=== PATIENT | female | born 1955 | race Caucasian/White ===

== ENCOUNTER 2017-09-02 17:59 | Inpatient (IN) | payer OTHER ==
[2017-09-02] MEDS: ONDANSETRON 4 MG INJ IV (23:51)
[2017-09-02 23:52] LABS: ADD MAN DIFF? NO
[2017-09-02] MEDS: morphine 4 MG/ML VIAL IV (23:52)
[2017-09-02 23:54] LABS: WHITE BLOOD COUNT 7.6 10^3/ul (4.8-10.8)
[2017-09-02 23:54] LABS: BASOPHILS % 0.3 % (0.0-2.0); EOSINOPHILS # 0.1 10^3/ul (0.0-0.5); EOSINOPHILS % 0.7 % (0.0-7.0); HEMATOCRIT 43.4 % (37.0-47.0); HEMOGLOBIN 14.8 g/dl (12.0-16.0); LYMPHOCYTES # 2.1 10^3/ul (0.8-2.9); LYMPHOCYTES % 26.8 % (15.0-51.0); MEAN CORPUSCULAR HEMOGLOBIN 29.5 pg (29.0-33.0); MEAN CORPUSCULAR HGB CONC 34.1 g/dl (32.0-37.0); MEAN CORPUSCULAR VOLUME 86.5 fl (82.0-101.0); MEAN PLATELET VOLUME 8.9 fl (7.4-10.4); MONOCYTE # 0.6 10^3/ul (0.3-0.9); MONOCYTES % 7.5 % (0.0-11.0); NEUTROPHIL # 4.9 10^3/ul (1.6-7.5); NEUTROPHILS % 64.2 % (39.0-77.0); PLATELET COUNT 367 10^3/UL (140-415); RED BLOOD COUNT 5.02 10^6/ul (4.20-5.40); RED CELL DISTRIBUTION WIDTH 12.3 % (11.5-14.5)
[2017-09-03 00:30] LABS: ALANINE AMINOTRANSFERASE 174 IU/L (13-69); ALBUMIN 4.3 g/dl (3.3-4.9); ALBUMIN/GLOBULIN RATIO 1.22; ALKALINE PHOSPHATASE 182 IU/L (42-121); ANION GAP 13 (8-16); ASPARTATE AMINO TRANSFERASE 340 IU/L (15-46); BILIRUBIN,INDIRECT 0.3 mg/dl (0-1.1); BILIRUBIN,TOTAL 0.3 mg/dl (0.2-1.3); BLOOD UREA NITROGEN 11 mg/dl (7-20); CALCIUM 9.2 mg/dl (8.4-10.2); CARBON DIOXIDE 28 mmol/L (21-31); CHLORIDE 104 mmol/L (97-110); CREATININE 0.66 mg/dl (0.44-1.00); GLUCOSE 89 mg/dl (70-220); LIPASE 859 U/L (23-300); POTASSIUM 3.3 mmol/L (3.5-5.1); SODIUM 142 mmol/L (135-144); TOTAL PROTEIN 7.8 g/dl (6.1-8.1)
[2017-09-03] MEDS: KETOROLAC 30 MG INJ IV (01:00)
[2017-09-03] MEDS ORDERED: POTASSIUM CHLORIDE 20 MEQ in DEXTROSE 5% 100 ML IVPB (01:30)
[2017-09-03] MEDS: POTASSIUM CHLORIDE 50 ML IVPB ×2 (01:33→02:43)
[2017-09-03] MEDS: SOD CHLORIDE 0.9% 1,000 ML IV ×3 (01:52→18:30)
[2017-09-03] MEDS ORDERED: BISACODYL (EC) 5 MG TAB PO (02:00)
[2017-09-03] MEDS: HYDROmorphONE 0.5 MG/0.5 ML SYG IV (05:32)
[2017-09-03 06:08] LABS: ADD MAN DIFF? NO
[2017-09-03 06:14] LABS: WHITE BLOOD COUNT 6.7 10^3/ul (4.8-10.8)
[2017-09-03 06:14] LABS: BASOPHILS % 0.3 % (0.0-2.0); EOSINOPHILS # 0.1 10^3/ul (0.0-0.5); EOSINOPHILS % 1.3 % (0.0-7.0); HEMATOCRIT 38.5 % (37.0-47.0); HEMOGLOBIN 12.8 g/dl (12.0-16.0); LYMPHOCYTES # 1.8 10^3/ul (0.8-2.9); LYMPHOCYTES % 27.5 % (15.0-51.0); MEAN CORPUSCULAR HEMOGLOBIN 29.2 pg (29.0-33.0); MEAN CORPUSCULAR HGB CONC 33.2 g/dl (32.0-37.0); MEAN CORPUSCULAR VOLUME 87.9 fl (82.0-101.0); MONOCYTE # 0.7 10^3/ul (0.3-0.9); MONOCYTES % 10.5 % (0.0-11.0); PLATELET COUNT 311 10^3/UL (140-415); RED BLOOD COUNT 4.38 10^6/ul (4.20-5.40); RED CELL DISTRIBUTION WIDTH 12.3 % (11.5-14.5)
[2017-09-03] MEDS: NACL 0.9% 3 ML SYG IV (06:31)
[2017-09-03 07:02] LABS: ALANINE AMINOTRANSFERASE 177 IU/L (13-69); ALBUMIN 3.3 g/dl (3.3-4.9); ALBUMIN/GLOBULIN RATIO 1.32; ALKALINE PHOSPHATASE 138 IU/L (42-121); ANION GAP 13 (8-16); ASPARTATE AMINO TRANSFERASE 241 IU/L (15-46); BILIRUBIN,INDIRECT 0.3 mg/dl (0-1.1); BILIRUBIN,TOTAL 0.3 mg/dl (0.2-1.3); BLOOD UREA NITROGEN 6 mg/dl (7-20); CALCIUM 7.8 mg/dl (8.4-10.2); CARBON DIOXIDE 25 mmol/L (21-31); CHLORIDE 112 mmol/L (97-110); CHOL/HDL RATIO 3.2 RATIO; CHOLESTEROL 161 mg/dl (100-200); CREATININE 0.62 mg/dl (0.44-1.00); GLUCOSE 87 mg/dl (70-220); HDL CHOLESTEROL 49 mg/dl (35-98); LDL CHOLESTEROL,CALCULATED 92 mg/dl; MAGNESIUM 1.8 mg/dl (1.7-2.5); POTASSIUM 4.6 mmol/L (3.5-5.1); SODIUM 145 mmol/L (135-144); TOTAL PROTEIN 5.8 g/dl (6.1-8.1); TRIGLYCERIDES 102 mg/dl (0-149)
[2017-09-03 07:56] LABS: HEMOGLOBIN A1C 5.5 % (0-5.9)
[2017-09-03 09:47] LABS: LIPASE 1757 U/L (23-300)
[2017-09-03 10:03] LABS: HAAIG REFLEX REFLEX FILED
[2017-09-03 10:54] LABS: FREE T3 4.92 pg/ml (2.77-5.27); FREE T4 (FREE THYROXINE) 1.39 ng/dl (0.78-2.44)
[2017-09-03 11:11] LABS: HEPATITIS B SURFACE ANTIGEN NEGATIVE (NEGATIVE)
[2017-09-03 11:27] LABS: HEPATITIS B SURFACE ANTIBODY NEGATIVE (NEGATIVE)
[2017-09-03 11:28] LABS: HEPATITIS B CORE ANTIBODY NEGATIVE (NEGATIVE); HEPATITIS C VIRAL ANTIBODY NEGATIVE (NEGATIVE)
[2017-09-03] MEDS: ONDANSETRON 4 MG INJ IV (11:56)
[2017-09-03] MEDS: ACETAMINOPHEN 325 MG TAB PO (23:41)
[2017-09-04] MEDS: SOD CHLORIDE 0.9% 1,000 ML IV ×4 (01:22→15:45)
[2017-09-04 05:51] LABS: ADD MAN DIFF? NO
[2017-09-04 06:00] LABS: WHITE BLOOD COUNT 7.2 10^3/ul (4.8-10.8)
[2017-09-04 06:00] LABS: BASOPHILS % 0.4 % (0.0-2.0); EOSINOPHILS # 0.2 10^3/ul (0.0-0.5); EOSINOPHILS % 2.1 % (0.0-7.0); HEMATOCRIT 36.7 % (37.0-47.0); HEMOGLOBIN 12.2 g/dl (12.0-16.0); LYMPHOCYTES % 28.2 % (15.0-51.0); MEAN CORPUSCULAR HEMOGLOBIN 29.2 pg (29.0-33.0); MEAN CORPUSCULAR HGB CONC 33.2 g/dl (32.0-37.0); MEAN CORPUSCULAR VOLUME 87.8 fl (82.0-101.0); MONOCYTE # 0.5 10^3/ul (0.3-0.9); MONOCYTES % 7.1 % (0.0-11.0); NEUTROPHIL # 4.5 10^3/ul (1.6-7.5); NEUTROPHILS % 61.6 % (39.0-77.0); PLATELET COUNT 301 10^3/UL (140-415); RED BLOOD COUNT 4.18 10^6/ul (4.20-5.40); RED CELL DISTRIBUTION WIDTH 12.5 % (11.5-14.5)
[2017-09-04 06:11] LABS: ALANINE AMINOTRANSFERASE 127 IU/L (13-69); ALKALINE PHOSPHATASE 134 IU/L (42-121); ANION GAP 13 (8-16); ASPARTATE AMINO TRANSFERASE 79 IU/L (15-46); BILIRUBIN,INDIRECT 0.4 mg/dl (0-1.1); BILIRUBIN,TOTAL 0.4 mg/dl (0.2-1.3); BLOOD UREA NITROGEN 4 mg/dl (7-20); CALCIUM 7.7 mg/dl (8.4-10.2); CARBON DIOXIDE 24 mmol/L (21-31); CHLORIDE 108 mmol/L (97-110); GLUCOSE 70 mg/dl (70-220); LIPASE 70 U/L (23-300); MAGNESIUM 1.8 mg/dl (1.7-2.5); POTASSIUM 3.1 mmol/L (3.5-5.1); SODIUM 142 mmol/L (135-144); TOTAL PROTEIN 5.5 g/dl (6.1-8.1)
[2017-09-04] MEDS: DOCUSATE SODIUM 100 MG CAP PO (08:34)
[2017-09-04] MEDS: ACETAMINOPHEN 325 MG TAB PO ×2 (09:42→16:51)
[2017-09-04] MEDS: VERAPAMIL (SR) 120 MG TAB PO (14:00)
[2017-09-04] MEDS: POTASSIUM CHLORIDE (SR) 20 MEQ TAB PO ×3 (14:56→20:32)
[2017-09-04 15:06] LABS: OCCULT BLOOD STOOL NEGATIVE (NEGATIVE)
[2017-09-04] MEDS ORDERED: NA PHOSPHATE/BIPHOS 133 ML ENEMA PR (20:00)
[2017-09-04] MEDS ORDERED: DOCUSATE SODIUM 100 MG CAP PO (20:00)
[2017-09-04] MEDS ORDERED: HYDROmorphONE 1 MG/ML SYG IV (20:00)
[2017-09-04] MEDS ORDERED: HYDROCODONE/APAP (5/325) TAB PO ×2 (20:00)
[2017-09-04] MEDS ORDERED: BISACODYL 10 MG SUPP PR (20:00)
[2017-09-04] MEDS ORDERED: HYDROmorphONE 0.5 MG/0.5 ML SYG IV (20:00)
[2017-09-04] MEDS: VALPROIC ACID 250 MG CAP PO (21:00)
[2017-09-05] MEDS: POTASSIUM CHLORIDE (SR) 20 MEQ TAB PO ×3 (01:00→09:28)
[2017-09-05 05:22] LABS: ADD MAN DIFF? NO
[2017-09-05 05:30] LABS: BASOPHILS % 0.6 % (0.0-2.0); EOSINOPHILS # 0.2 10^3/ul (0.0-0.5); EOSINOPHILS % 2.6 % (0.0-7.0); HEMATOCRIT 35.3 % (37.0-47.0); HEMOGLOBIN 12.1 g/dl (12.0-16.0); LYMPHOCYTES # 2.6 10^3/ul (0.8-2.9); LYMPHOCYTES % 39.9 % (15.0-51.0); MEAN CORPUSCULAR HEMOGLOBIN 29.9 pg (29.0-33.0); MEAN CORPUSCULAR HGB CONC 34.3 g/dl (32.0-37.0); MEAN CORPUSCULAR VOLUME 87.2 fl (82.0-101.0); MONOCYTE # 0.5 10^3/ul (0.3-0.9); MONOCYTES % 7.8 % (0.0-11.0); NEUTROPHIL # 3.2 10^3/ul (1.6-7.5); NEUTROPHILS % 48.8 % (39.0-77.0); PLATELET COUNT 315 10^3/UL (140-415); RED BLOOD COUNT 4.05 10^6/ul (4.20-5.40); RED CELL DISTRIBUTION WIDTH 12.7 % (11.5-14.5)
[2017-09-05 05:30] LABS: WHITE BLOOD COUNT 6.5 10^3/ul (4.8-10.8)
[2017-09-05 05:53] LABS: INR 0.95; PROTIME 12.8 Sec (11.9-14.9)
[2017-09-05 05:54] LABS: PARTIAL THROMBOPLASTIN TIME 30.4 Sec (25.0-35.0)
[2017-09-05 06:16] LABS: ALANINE AMINOTRANSFERASE 93 IU/L (13-69); ALBUMIN 3.1 g/dl (3.3-4.9); ALBUMIN/GLOBULIN RATIO 1.29; ALKALINE PHOSPHATASE 120 IU/L (42-121); ANION GAP 10 (8-16); ASPARTATE AMINO TRANSFERASE 36 IU/L (15-46); BILIRUBIN,INDIRECT 0.2 mg/dl (0-1.1); BILIRUBIN,TOTAL 0.2 mg/dl (0.2-1.3); BLOOD UREA NITROGEN 5 mg/dl (7-20); CALCIUM 8.5 mg/dl (8.4-10.2); CARBON DIOXIDE 26 mmol/L (21-31); CHLORIDE 110 mmol/L (97-110); CREATININE 0.59 mg/dl (0.44-1.00); GLUCOSE 83 mg/dl (70-220); SODIUM 141 mmol/L (135-144); TOTAL PROTEIN 5.5 g/dl (6.1-8.1)
[2017-09-05 06:38] LABS: AMYLASE 53 U/L (11-123)
[2017-09-05 07:04] LABS: PHOSPHORUS 3.2 mg/dl (2.5-4.9)
[2017-09-05 07:04] LABS: MAGNESIUM 1.8 mg/dl (1.7-2.5)
[2017-09-05 07:11] LABS: LIPASE 83 U/L (23-300)
[2017-09-05 07:13] LABS: B-TYPE NATRIURETIC PEPTIDE 317 PG/ML (0-125)
[2017-09-05] MEDS ORDERED: ENOXAPARIN 40 MG/0.4 ML SYG SC (09:00)
[2017-09-05] MEDS: VERAPAMIL (SR) 120 MG TAB PO (09:00)
[2017-09-05] MEDS ORDERED: FAMOTIDINE 20 MG INJ IV (09:00)
== END 2017-09-05 12:10 | disposition home or self-care (01) | DRG 444 ==
LOC: E/R 17:59 → MS1 09-03 01:51
DX: K81.0 Acute cholecystitis (principal); K85.10 Biliary acute pancreatitis without necrosis or infection; E87.6 Hypokalemia; K52.9 Noninfective gastroenteritis and colitis, unspecified; G43.909 Migraine, unspecified, not intractable, without status migrainosus; Z87.442 Personal history of urinary calculi
CPT/HCPCS: 36415; 74176; 74181; 76705; 80053; 80061; 82150; 82270; 83036; 83690; 83735; 83880; 84100; 84439; 84443; 84481; 85025; 85610; 85730; 86674; 86704; 86706; 86708; 86709; 86803; 87045; 87177; 87205; 87338; 87340; 96374; 96375; 96376; 99285-25

== ENCOUNTER 2017-09-27 07:10 | Inpatient (IN) | payer OTHER ==
[2017-09-27 08:59] LABS: ADD MAN DIFF? NO
[2017-09-27 09:01] LABS: WHITE BLOOD COUNT 11.3 10^3/ul (4.8-10.8)
[2017-09-27 09:01] LABS: BASOPHILS % 0.4 % (0.0-2.0); EOSINOPHILS % 0.4 % (0.0-7.0); HEMATOCRIT 41.8 % (37.0-47.0); HEMOGLOBIN 13.9 g/dl (12.0-16.0); LYMPHOCYTES # 1.5 10^3/ul (0.8-2.9); LYMPHOCYTES % 13.5 % (15.0-51.0); MEAN CORPUSCULAR HGB CONC 33.3 g/dl (32.0-37.0); MEAN CORPUSCULAR VOLUME 90.3 fl (82.0-101.0); MEAN PLATELET VOLUME 9.2 fl (7.4-10.4); MONOCYTE # 0.6 10^3/ul (0.3-0.9); MONOCYTES % 5.5 % (0.0-11.0); NEUTROPHIL # 9.1 10^3/ul (1.6-7.5); NEUTROPHILS % 79.8 % (39.0-77.0); PLATELET COUNT 247 10^3/UL (140-415); RED BLOOD COUNT 4.63 10^6/ul (4.20-5.40); RED CELL DISTRIBUTION WIDTH 13.1 % (11.5-14.5)
[2017-09-27 09:06] LABS: ADD UMIC NO; UR ASCORBIC ACID NEGATIVE (NEGATIVE); UR BILIRUBIN (Dip) NEGATIVE (NEGATIVE); UR BLOOD (Dip) NEGATIVE (NEGATIVE); UR CLARITY CLEAR (CLEAR); UR COLOR COLORLESS (YELLOW); UR GLUCOSE (Dip) NEGATIVE (NEGATIVE); UR KETONES (Dip) NEGATIVE (NEGATIVE); UR LEUKOCYTE ESTERASE (Dip) NEGATIVE Leu/ul (NEGATIVE); UR NITRITE (Dip) NEGATIVE (NEGATIVE); UR TOTAL PROTEIN (Dip) NEGATIVE (NEGATIVE); UR UROBILINOGEN (Dip) NEGATIVE (NEGATIVE)
[2017-09-27] MEDS: morphine 4 MG/ML VIAL IV (09:07)
[2017-09-27] MEDS: ONDANSETRON 4 MG INJ IV ×3 (09:07→17:38)
[2017-09-27] MEDS: SOD CHLORIDE 0.9% 1,000 ML IV (09:07)
[2017-09-27 09:23] LABS: INR 0.88; PT RATIO 0.9
[2017-09-27 09:24] LABS: PARTIAL THROMBOPLASTIN TIME 32.8 Sec (25.0-35.0)
[2017-09-27 09:30] LABS: ALANINE AMINOTRANSFERASE 73 IU/L (13-69); ALBUMIN 3.9 g/dl (3.3-4.9); ALKALINE PHOSPHATASE 116 IU/L (42-121); ANION GAP 15 (8-16); ASPARTATE AMINO TRANSFERASE 150 IU/L (15-46); BILIRUBIN,INDIRECT 0.2 mg/dl (0-1.1); BILIRUBIN,TOTAL 0.2 mg/dl (0.2-1.3); BLOOD UREA NITROGEN 7 mg/dl (7-20); CALCIUM 8.9 mg/dl (8.4-10.2); CARBON DIOXIDE 26 mmol/L (21-31); CHLORIDE 103 mmol/L (97-110); CREATININE 0.65 mg/dl (0.44-1.00); GLUCOSE 118 mg/dl (70-220); LIPASE 285 U/L (23-300); SODIUM 140 mmol/L (135-144); TOTAL PROTEIN 6.9 g/dl (6.1-8.1)
[2017-09-27 09:45] LABS: TROPONIN-I < 0.012 ng/ml (0.00-0.12)
[2017-09-27] MEDS ORDERED: ACETAMINOPHEN 325 MG TAB PO (10:00)
[2017-09-27] MEDS: HYDROmorphONE 1 MG/ML SYG IV (10:03)
[2017-09-27] MEDS ORDERED: ONDANSETRON 4 MG INJ IV (11:30)
[2017-09-27] MEDS ORDERED: morphine 2 MG INJ IV (11:30)
[2017-09-27] MEDS: DEXTROSE 5%-0.45% NACL 1,000 ML IV ×2 (13:15→21:30)
[2017-09-27] MEDS ORDERED: FAMOTIDINE 20 MG TAB (19:56)
[2017-09-27] MEDS: FAMOTIDINE 20 MG TAB PO (20:03)
[2017-09-27] MEDS ORDERED: AL HYDROX/MG HYDROX/SIMETH 30 ML CUP PO (20:30)
[2017-09-28] MEDS: DEXTROSE 5%-0.45% NACL 1,000 ML IV (02:11)
[2017-09-28 06:45] LABS: ADD MAN DIFF? NO
[2017-09-28 06:52] LABS: BASOPHIL # 0.1 10^3/ul (0.0-0.1); BASOPHILS % 0.7 % (0.0-2.0); EOSINOPHILS # 0.2 10^3/ul (0.0-0.5); EOSINOPHILS % 2.8 % (0.0-7.0); HEMATOCRIT 39.6 % (37.0-47.0); HEMOGLOBIN 13.3 g/dl (12.0-16.0); LYMPHOCYTES # 1.8 10^3/ul (0.8-2.9); LYMPHOCYTES % 25.3 % (15.0-51.0); MEAN CORPUSCULAR HEMOGLOBIN 30.2 pg (29.0-33.0); MEAN CORPUSCULAR HGB CONC 33.6 g/dl (32.0-37.0); MEAN CORPUSCULAR VOLUME 89.8 fl (82.0-101.0); MEAN PLATELET VOLUME 9.7 fl (7.4-10.4); MONOCYTE # 0.6 10^3/ul (0.3-0.9); MONOCYTES % 8.2 % (0.0-11.0); NEUTROPHIL # 4.5 10^3/ul (1.6-7.5); NEUTROPHILS % 62.6 % (39.0-77.0); PLATELET COUNT 242 10^3/UL (140-415); RED BLOOD COUNT 4.41 10^6/ul (4.20-5.40); RED CELL DISTRIBUTION WIDTH 13.2 % (11.5-14.5)
[2017-09-28 06:52] LABS: WHITE BLOOD COUNT 7.2 10^3/ul (4.8-10.8)
[2017-09-28 07:08] LABS: HEMOGLOBIN A1C 5.2 % (0-5.9)
[2017-09-28 07:10] LABS: ALANINE AMINOTRANSFERASE 185 IU/L (13-69); ALBUMIN 3.3 g/dl (3.3-4.9); ALBUMIN/GLOBULIN RATIO 1.17; ALKALINE PHOSPHATASE 118 IU/L (42-121); ANION GAP 10 (8-16); ASPARTATE AMINO TRANSFERASE 165 IU/L (15-46); BILIRUBIN,INDIRECT 0.5 mg/dl (0-1.1); BILIRUBIN,TOTAL 0.5 mg/dl (0.2-1.3); BLOOD UREA NITROGEN 3 mg/dl (7-20); CALCIUM 8.9 mg/dl (8.4-10.2); CARBON DIOXIDE 29 mmol/L (21-31); CHLORIDE 105 mmol/L (97-110); GLUCOSE 92 mg/dl (70-220); MAGNESIUM 1.9 mg/dl (1.7-2.5); POTASSIUM 3.7 mmol/L (3.5-5.1); SODIUM 140 mmol/L (135-144); TOTAL PROTEIN 6.1 g/dl (6.1-8.1)
[2017-09-28] MEDS: FAMOTIDINE 20 MG TAB PO (09:00)
== END 2017-09-28 12:40 | disposition home or self-care (01) | DRG 444 ==
LOC: E/R 07:10 → PP2 09:31
DX: K80.20 Calculus of gallbladder without cholecystitis without obstruction (principal); K85.10 Biliary acute pancreatitis without necrosis or infection; N13.30 Unspecified hydronephrosis
CPT/HCPCS: 36415; 71045; 74181; 76705; 80053; 81003; 83036; 83690; 83735; 84484; 85025; 85610; 85730; 87081; 93005; 96374; 96375; 96376; 99285-25